=== PATIENT | female | born 1940 | race Caucasian/White ===

== ENCOUNTER 2018-02-19 15:46 | Outpatient (CLI) | payer MEDICARE ==
--- NOTE | 2018-02-19 17:37 | MRI ---
MRI THORACIC SPINE WITHOUT CONTRAST: Technique: Multiplanar, multisequence MRI images were obtained of the thoracic spine. Indications: Fall one month ago, back pain. FINDINGS: There is compression deformity involving the T9 vertebra with anterior wedge compression. There is di ffuse edema within this vertebra. Loss of anterior height is estimated at 70%. No significant retropu lsion. There is also a compression deformity involving the T11 vertebra with loss of anterior height estimat ed at 70%. No significant edema is seen within this vertebra, indicating that this is probably a more stable compression fracture. The other thoracic vertebrae maintain height. No other vertebral body edema identified. At the T10-11 disc, there is a mild diffuse disc bulge and there is minimal retropulsion of the poste rior superior corner of T11 associated with this T11 compression. These changes mildly flatten the th ecal sac. The anterior subarachnoid space is preserved at this level and there is no impingement on t he cord. No significant disc bulge or disc protrusion seen in the thoracic spine. The thoracic cord signal vianca ears normal. There is a superior endplate deformity involving the T7 vertebra consistent with a Schmorl node. Mild degenerative changes noted with anterior osteophytes from the thoracic vertebra. IMPRESSION: 1. Evidence of acute or subacute compression deformity involving the T9 vertebra with edema present a s described above. 2. Evidence of more stable compression deformity involving the T11 vertebra as described above. POS: [facility]
== END 2018-02-19 15:47 | disposition home or self-care (01) ==
LOC: SCSMRI 15:46
PROVIDERS: ATTEND Anesthesiology Pain Medicine
DX: S22.000A Wedge compression fracture of unspecified thoracic vertebra, initial encounter for closed fracture (principal); M43.8X4 Other specified deforming dorsopathies, thoracic region
CPT/HCPCS: 72146

== ENCOUNTER 2019-05-05 20:50 | Emergency (ER) | payer MEDICARE ==
[2019-05-05] MEDS ORDERED: Lidocaine 1% w/Epinephrine 1:100K 20 ML VIAL ONE (21:28)
[2019-05-05 21:46] LABS: #Basophils 0.1 thou/uL (0.0-0.2); #Eosinphils 0.1 thou/uL (0.0-0.7); #Lymphocytes 2.4 thou/uL (1.20-3.40); #Monocytes 0.6 thou/uL (0.11-0.59); #Neutrophils 6.8 thou/uL (1.40-6.50); %Basophils 1.1 % (0.0-1.0); %Eosinophils 1.2 % (0.0-10.0); %Lymphocytes 24.1 % (21.0-51.0); %Neutrophils 67.6 % (42.0-75.0); Hemoglobin 13.3 g/dL (12.0-16.0); Mean Corpuscular HGB CONC 34.1 g/dL (32.0-36.0); Mean Corpuscular Hemoglobin 32.8 pg (27.0-31.0); Mean Corpuscular Volume 96.2 fL (78.0-98.0); Mean Platelet Volume 6.9 fL (7.4-10.4); Platelet Count 175 thou/uL (130-400); RBC Distribution Width 11.7 % (11.5-14.5); Red Blood Cell (RBC) Count 4.07 mill/uL (4.20-5.40); White Blood Cell (WBC) Count 10.1 thou/uL (4.8-10.8)
[2019-05-05 22:04] LABS: ALT (SGPT) 14 U/L (8-55); AST (SGOT) 15 U/L (5-34); Albumin 3.9 g/dL (3.4-4.8); Alkaline Phosphatase 82 U/L (40-150); Anion Gap 13 mmol/L (10-20); BUN (Urea Nitrogen) 15 mg/dL (9.8-20.1); Bilirubin, Total 0.5 mg/dL (0.2-1.2); Calc. Creatinine Clearance 0 mL/min (70-130); Calcium 8.4 mg/dL (7.8-10.44); Carbon Dioxide 24 mmol/L (23-31); Chloride 100 mmol/L (98-107); Estimated GFR-MDRD 44; Globulin 2.4 g/dL (2.4-3.5); Glucose 119 mg/dL (83-110); Potassium 3.2 mmol/L (3.5-5.1); Protein, Total 6.3 g/dL (6.0-8.3); Sodium 134 mmol/L (136-145)
[2019-05-05] MEDS ORDERED: Adacel (T-DAP) 0.5 ML SYRINGE ONE (23:03)
[2019-05-05] MEDS ORDERED: Bacitracin Zinc 1 Packet ONE (23:15)
== END 2019-05-05 23:17 | disposition home or self-care (01) ==
LOC: ERS 20:50
DX: S61.213A Laceration without foreign body of left middle finger without damage to nail, initial encounter (principal); S61.215A Laceration without foreign body of left ring finger without damage to nail, initial encounter; R55 Syncope and collapse; J44.9 Chronic obstructive pulmonary disease, unspecified; I10 Essential (primary) hypertension; M25.561 Pain in right knee; F17.210 Nicotine dependence, cigarettes, uncomplicated; Z79.899 Other long term (current) drug therapy; Z23 Encounter for immunization; W18.30XA Fall on same level, unspecified, initial encounter
CPT/HCPCS: 12001; 36415; 80053; 84484; 85025; 90471; 90715; 93005; J2001

== ENCOUNTER 2021-02-11 21:48 | Inpatient (IN) | payer MEDICARE ==
[2021-02-11] MEDS ORDERED: Magnesium 2 GM/50 ML BAG (IN WATER) ONE (22:29)
[2021-02-11] MEDS ORDERED: Albuterol Sulfate 2.5 mg/3 ml Neb ONE (22:41)
[2021-02-11 22:48] LABS: Actual Bicarbonate (HCO3v) 29 mEq/L (22-28); Analyzer IN Cardio ER; Base Excess 3.5 mEq/L (-2.0 to +3.0); Calcium, Ionized (venous) 1.06 mmol/L (1.16-1.32); Chloride (VBG) 94 mmol/L (98-106); Hemoglobin (Hb) 16.2 g/dL (11.7-16.1); pH (venous) 7.42 (7.32-7.43)
[2021-02-11 22:50] LABS: #Basophils 0.1 thou/uL (0.0-0.2); #Eosinphils 0.4 thou/uL (0.0-0.7); #Lymphocytes 1.2 thou/uL (1.20-3.40); #Monocytes 0.3 thou/uL (0.11-0.59); #Neutrophils 9.9 thou/uL (1.40-6.50); %Basophils 0.4 % (0.0-1.0); %Eosinophils 3.2 % (0.0-10.0); %Monocytes 2.3 % (0.0-10.0); %Neutrophils 84.1 % (42.0-75.0); Hemoglobin 15.3 g/dL (12.0-16.0); Mean Corpuscular HGB CONC 34.5 g/dL (32.0-36.0); Mean Corpuscular Hemoglobin 32.8 pg (27.0-31.0); Mean Corpuscular Volume 95.1 fL (78.0-98.0); Mean Platelet Volume 7.1 fL (7.4-10.4); Platelet Count 218 thou/uL (130-400); RBC Distribution Width 11.1 % (11.5-14.5); Red Blood Cell (RBC) Count 4.68 mill/uL (4.20-5.40); White Blood Cell (WBC) Count 11.8 thou/uL (4.8-10.8)
[2021-02-11 23:11] LABS: ALT (SGPT) 13 U/L (8-55); AST (SGOT) 20 U/L (5-34); Albumin 4.2 g/dL (3.4-4.8); Alkaline Phosphatase 67 U/L (40-110); Anion Gap 15 mmol/L (10-20); BUN (Urea Nitrogen) 15 mg/dL (9.8-20.1); Calc. Creatinine Clearance 0 mL/min (70-130); Calcium 9.3 mg/dL (7.8-10.44); Carbon Dioxide 28 mmol/L (23-31); Chloride 94 mmol/L (98-107); Globulin 2.9 g/dL (2.4-3.5); Glucose 129 mg/dL (83-110); Potassium 3.6 mmol/L (3.5-5.1); Protein, Total 7.1 g/dL (5.8-8.1); Sodium 133 mmol/L (136-145)
[2021-02-11 23:33] LABS: CKMB 2.8 ng/mL (0-6.6)
[2021-02-11] MEDS ORDERED: Aspirin 325 MG TAB ONE (23:37)
[2021-02-12 00:03] LABS: SARS-CoV-2 NAA Rapid Test Not Detected (NotDetected)
[2021-02-12] MEDS ORDERED: Enoxaparin Sodium 80 MG/0.8 ML SYRINGE ONE ×2 (01:25→08:43)
[2021-02-12] MEDS ORDERED: methylPREDNISolone Sod Succ 40 MG VIAL ONE (02:29)
[2021-02-12 02:43] LABS: Troponin I 0.188 ng/mL (< 0.028)
[2021-02-12 02:58] VITALS: BMI 27.0
[2021-02-12] MEDS ORDERED: Acetaminophen 325 MG TAB PO PRN (04:41)
[2021-02-12] MEDS ORDERED: Ondansetron PF 4 MG/2 ML Vial IVP PRN (04:41)
[2021-02-12] MEDS ORDERED: Ondansetron ODT 4 MG TAB PO PRN (04:41)
[2021-02-12 05:04] LABS: Troponin I 0.176 ng/mL (< 0.028)
[2021-02-12] MEDS ORDERED: Azithromycin 500 MG VIAL ONE (05:44)
[2021-02-12] MEDS: methylPREDNISolone Sod Succ 40 MG VIAL IVP SCH (07:00)
[2021-02-12] MEDS: Enoxaparin Sodium 80 MG/0.8 ML SYRINGE SC SCH ×2 (08:46→20:29)
[2021-02-12] MEDS: Azithromycin 500 MG in Sodium Chloride 0.9% 250 ML 250 ML IVPB SCH (08:47)
[2021-02-12] MEDS ORDERED: Enoxaparin Sodium 40 MG/0.4 ML SYRINGE SC SCH ×2 (09:00)
[2021-02-12] MEDS ORDERED: FLU VACC QS2020-21(65YR UP)/PF 240 MCG/0.7 ML SYRINGE IM ONE (13:15)
[2021-02-12] MEDS ORDERED: Aspirin 81 mg Enteric Coated Tablet PO SCH (13:45)
[2021-02-12] MEDS ORDERED: methylPREDNISolone Sod Succ 40 MG VIAL IVP SCH (18:00)
[2021-02-12] MEDS: cefTRIAXone\\ROCEPHIN 1 GM in Sodium Chloride 0.9% 100 ML IVPB SCH (20:29)
[2021-02-13 04:35] LABS: #Lymphocytes 1.4 thou/uL (1.20-3.40); #Monocytes 0.4 thou/uL (0.11-0.59); #Neutrophils 10.6 thou/uL (1.40-6.50); %Basophils 0.1 % (0.0-1.0); %Eosinophils 0.1 % (0.0-10.0); %Lymphocytes 11.2 % (21.0-51.0); %Monocytes 3.3 % (0.0-10.0); %Neutrophils 85.3 % (42.0-75.0); Mean Corpuscular HGB CONC 32.4 g/dL (32.0-36.0); Mean Corpuscular Hemoglobin 31.1 pg (27.0-31.0); Mean Corpuscular Volume 95.9 fL (78.0-98.0); Mean Platelet Volume 7.2 fL (7.4-10.4); Platelet Count 221 thou/uL (130-400); White Blood Cell (WBC) Count 12.5 thou/uL (4.8-10.8)
[2021-02-13 04:51] LABS: Anion Gap 13 mmol/L (10-20); BUN (Urea Nitrogen) 23 mg/dL (9.8-20.1); Calc. Creatinine Clearance 41 mL/min (70-130); Calcium 8.7 mg/dL (7.8-10.44); Carbon Dioxide 31 mmol/L (23-31); Cardiac Risk 3.8 (Less than 4.5); Chloride 93 mmol/L (98-107); Cholesterol 230 mg/dl (< 200 Desired); Glucose 145 mg/dL (83-110); HDL Cholesterol 61 mg/dL (>60 Neg Risk); LDL Cholesterol, Calculated 142 mg/dL; Potassium 3.6 mmol/L (3.5-5.1); Sodium 133 mmol/L (136-145); Triglycerides 135 mg/dL (Less than 150)
[2021-02-13] MEDS: Enoxaparin Sodium 80 MG/0.8 ML SYRINGE SC SCH (09:14)
[2021-02-13] MEDS: Losartan 25 MG TAB PO SCH (09:14)
[2021-02-13] MEDS: methylPREDNISolone Sod Succ 40 MG VIAL IVP SCH (09:16)
[2021-02-13] MEDS: Aspirin 81 mg Enteric Coated Tablet PO SCH (09:16)
[2021-02-13] MEDS ORDERED: Nitroglycerin 0.4 MG TAB (25 Tab Bottle) SL PRN (09:35)
[2021-02-13] MEDS: Azithromycin 500 MG in Sodium Chloride 0.9% 250 ML 250 ML IVPB SCH (10:54)
[2021-02-13] MEDS ORDERED: Potassium Chloride 20 MEQ TAB PO SCH (12:00)
[2021-02-13] MEDS: cefTRIAXone\\ROCEPHIN 1 GM in Sodium Chloride 0.9% 100 ML IVPB SCH (20:59)
[2021-02-13] MEDS: Rosuvastatin 20 MG TAB PO SCH (21:03)
[2021-02-14 06:29] LABS: #Lymphocytes 1.7 thou/uL (1.20-3.40); #Monocytes 0.6 thou/uL (0.11-0.59); #Neutrophils 7.2 thou/uL (1.40-6.50); %Basophils 0.2 % (0.0-1.0); %Lymphocytes 17.9 % (21.0-51.0); %Monocytes 6.3 % (0.0-10.0); %Neutrophils 75.6 % (42.0-75.0); Hemoglobin 13.1 g/dL (12.0-16.0); Mean Corpuscular HGB CONC 34.2 g/dL (32.0-36.0); Mean Corpuscular Hemoglobin 32.9 pg (27.0-31.0); Mean Corpuscular Volume 96.2 fL (78.0-98.0); Mean Platelet Volume 7.1 fL (7.4-10.4); Platelet Count 180 thou/uL (130-400); Red Blood Cell (RBC) Count 3.97 mill/uL (4.20-5.40); White Blood Cell (WBC) Count 9.6 thou/uL (4.8-10.8)
[2021-02-14 06:48] LABS: Anion Gap 10 mmol/L (10-20); BUN (Urea Nitrogen) 27 mg/dL (9.8-20.1); Calc. Creatinine Clearance 48 mL/min (70-130); Calcium 8.4 mg/dL (7.8-10.44); Carbon Dioxide 33 mmol/L (23-31); Chloride 96 mmol/L (98-107); Glucose 99 mg/dL (83-110); Potassium 3.7 mmol/L (3.5-5.1); Sodium 135 mmol/L (136-145)
[2021-02-14] MEDS: Aspirin 81 mg Enteric Coated Tablet PO SCH (07:54)
[2021-02-14] MEDS: Losartan 25 MG TAB PO SCH (07:54)
[2021-02-14] MEDS: methylPREDNISolone Sod Succ 40 MG VIAL IVP SCH ×3 (07:56→21:25)
[2021-02-14] MEDS: Azithromycin 500 MG in Sodium Chloride 0.9% 250 ML 250 ML IVPB SCH (08:34)
[2021-02-14] MEDS ORDERED: Enoxaparin Sodium 40 MG/0.4 ML SYRINGE SC SCH (09:00)
[2021-02-14] MEDS: cefTRIAXone\\ROCEPHIN 1 GM in Sodium Chloride 0.9% 100 ML IVPB SCH (21:10)
[2021-02-14] MEDS: Rosuvastatin 20 MG TAB PO SCH (21:25)
[2021-02-15 05:57] LABS: #Lymphocytes 0.6 thou/uL (1.20-3.40); #Monocytes 0.2 thou/uL (0.11-0.59); #Neutrophils 6.3 thou/uL (1.40-6.50); %Eosinophils 0.1 % (0.0-10.0); %Lymphocytes 7.7 % (21.0-51.0); %Monocytes 3.1 % (0.0-10.0); %Neutrophils 89.1 % (42.0-75.0); Hemoglobin 13.3 g/dL (12.0-16.0); Mean Corpuscular Hemoglobin 31.7 pg (27.0-31.0); Mean Platelet Volume 7.4 fL (7.4-10.4); Platelet Count 184 thou/uL (130-400); RBC Distribution Width 10.8 % (11.5-14.5); White Blood Cell (WBC) Count 7.1 thou/uL (4.8-10.8)
[2021-02-15 06:12] LABS: Anion Gap 12 mmol/L (10-20); BUN (Urea Nitrogen) 27 mg/dL (9.8-20.1); Calc. Creatinine Clearance 43 mL/min (70-130); Calcium 8.4 mg/dL (7.8-10.44); Carbon Dioxide 31 mmol/L (23-31); Chloride 96 mmol/L (98-107); Glucose 192 mg/dL (83-110); Potassium 3.8 mmol/L (3.5-5.1); Sodium 135 mmol/L (136-145)
[2021-02-15] MEDS: Aspirin 81 mg Enteric Coated Tablet PO SCH (08:21)
[2021-02-15] MEDS: predniSONE 20 MG TAB PO SCH ×2 (08:21→16:09)
[2021-02-15] MEDS: Losartan 25 MG TAB PO SCH (08:21)
[2021-02-15] MEDS ORDERED: Cefdinir 300 MG CAP PO SCH (09:00)
[2021-02-15 16:12] VITALS: BP 160/76; TEMP 97.8
== END 2021-02-15 16:46 | disposition home or self-care (01) | DRG 189 ==
LOC: ERS 21:48 → ERHOLD 02-12 01:28 → 2NO 02-12 11:55 → T4-B 02-13 18:46
PROVIDERS: ADMIT Student in an Organized Health Care Education/Training Program; ATTEND Internal Medicine
DX: J96.01 Acute respiratory failure with hypoxia (principal); I21.A1 Myocardial infarction type 2; J44.1 Chronic obstructive pulmonary disease with (acute) exacerbation; Z20.822 Contact with and (suspected) exposure to COVID-19; E87.1 Hypo-osmolality and hyponatremia; I12.9 Hypertensive chronic kidney disease with stage 1 through stage 4 chronic kidney disease, or unspecified chronic kidney disease; F17.210 Nicotine dependence, cigarettes, uncomplicated; E78.00 Pure hypercholesterolemia, unspecified; N18.30 Chronic kidney disease, stage 3 unspecified; E78.5 Hyperlipidemia, unspecified; Z98.51 Tubal ligation status; Z88.5 Allergy status to narcotic agent; Z88.8 Allergy status to other drugs, medicaments and biological substances; Z79.51 Long term (current) use of inhaled steroids; Z79.899 Other long term (current) drug therapy
CPT/HCPCS: 0240U; 36415; 71045; 80048; 80053; 80061; 82553; 82805; 83605; 83735; 83880; 84484; 85025; 85379; 87040; 93005; 94640; 96365; 96367; 96372; J0456; J0696; J1650; J1956; J2920; J3475; J3490; J7050; J7512; J7611; J7620

== ENCOUNTER 2021-04-12 22:33 | Observation (INO) | payer MEDICARE ==
[2021-04-12 23:05] LABS: #Basophils 0.1 thou/uL (0.0-0.2); #Eosinphils 0.4 thou/uL (0.0-0.7); #Lymphocytes 1.1 thou/uL (1.20-3.40); #Monocytes 0.4 thou/uL (0.11-0.59); #Neutrophils 11.6 thou/uL (1.40-6.50); %Basophils 0.4 % (0.0-1.0); %Eosinophils 2.8 % (0.0-10.0); %Lymphocytes 8.4 % (21.0-51.0); %Monocytes 2.8 % (0.0-10.0); %Neutrophils 85.7 % (42.0-75.0); Hemoglobin 13.7 g/dL (12.0-16.0); Mean Corpuscular Hemoglobin 33.5 pg (27.0-31.0); Mean Corpuscular Volume 98.4 fL (78.0-98.0); Mean Platelet Volume 7.1 fL (7.4-10.4); Platelet Count 172 thou/uL (130-400); RBC Distribution Width 13.1 % (11.5-14.5); White Blood Cell (WBC) Count 13.5 thou/uL (4.8-10.8)
[2021-04-12 23:29] LABS: ALT (SGPT) 12 U/L (8-55); AST (SGOT) 15 U/L (5-34); Albumin 4.2 g/dL (3.4-4.8); Alkaline Phosphatase 70 U/L (40-110); Anion Gap 13 mmol/L (10-20); BUN (Urea Nitrogen) 13 mg/dL (9.8-20.1); Bilirubin, Total 1.3 mg/dL (0.2-1.2); Calc. Creatinine Clearance 0 mL/min (70-130); Calcium 9.1 mg/dL (7.8-10.44); Carbon Dioxide 29 mmol/L (23-31); Chloride 98 mmol/L (98-107); Globulin 2.7 g/dL (2.4-3.5); Glucose 167 mg/dL (83-110); Potassium 4.2 mmol/L (3.5-5.1); Protein, Total 6.9 g/dL (5.8-8.1); Sodium 136 mmol/L (136-145)
[2021-04-13 00:09] LABS: CKMB 3.2 ng/mL (0-6.6)
[2021-04-13] MEDS ORDERED: Ondansetron PF 4 MG/2 ML Vial IVP PRN (02:46)
[2021-04-13] MEDS ORDERED: Azithromycin 500 MG in Sodium Chloride 0.9% 250 ML 250 ML IVPB SCH (03:00)
[2021-04-13] MEDS ORDERED: Bacteriostatic Water 30 ML VIAL FS PRN (03:00)
[2021-04-13 03:30] VITALS: BMI 27.1
[2021-04-13 04:16] LABS: #Lymphocytes 0.6 thou/uL (1.20-3.40); #Monocytes 0.1 thou/uL (0.11-0.59); %Lymphocytes 6.5 % (21.0-51.0); %Neutrophils 92.5 % (42.0-75.0); Hemoglobin 13.5 g/dL (12.0-16.0); Mean Corpuscular HGB CONC 32.9 g/dL (32.0-36.0); Mean Corpuscular Hemoglobin 32.9 pg (27.0-31.0); Mean Corpuscular Volume 99.7 fL (78.0-98.0); Mean Platelet Volume 7.2 fL (7.4-10.4); Platelet Count 170 thou/uL (130-400); RBC Distribution Width 13.1 % (11.5-14.5); White Blood Cell (WBC) Count 9.7 thou/uL (4.8-10.8)
[2021-04-13 04:34] LABS: Anion Gap 13 mmol/L (10-20); BUN (Urea Nitrogen) 14 mg/dL (9.8-20.1); Calc. Creatinine Clearance 48 mL/min (70-130); Calcium 9.3 mg/dL (7.8-10.44); Carbon Dioxide 26 mmol/L (23-31); Chloride 98 mmol/L (98-107); Glucose 193 mg/dL (83-110); Potassium 4.1 mmol/L (3.5-5.1); Sodium 133 mmol/L (136-145)
[2021-04-13 04:54] LABS: SARS-CoV-2 NAA Rapid Test Not Detected (NotDetected)
[2021-04-13] MEDS ORDERED: Mometasone 100 MCG/Formoterol 5 MCG 120 PUFF INHALER INH SCH (06:30)
[2021-04-13 08:06] VITALS: BP 150/64; TEMP 97
[2021-04-13] MEDS ORDERED: methylPREDNISolone Sod Succ 40 MG VIAL IVP SCH (09:00)
[2021-04-13] MEDS ORDERED: Enoxaparin Sodium 40 MG/0.4 ML SYRINGE SC SCH (09:00)
== END 2021-04-13 12:53 | disposition home or self-care (01) ==
LOC: ERS 22:33 → 2NO 04-13 01:24
PROVIDERS: ADMIT Student in an Organized Health Care Education/Training Program; ATTEND Internal Medicine
DX: J96.21 Acute and chronic respiratory failure with hypoxia (principal); J44.9 Chronic obstructive pulmonary disease, unspecified; I12.9 Hypertensive chronic kidney disease with stage 1 through stage 4 chronic kidney disease, or unspecified chronic kidney disease; N18.30 Chronic kidney disease, stage 3 unspecified; Z79.51 Long term (current) use of inhaled steroids; Z79.899 Other long term (current) drug therapy; Z87.891 Personal history of nicotine dependence; Z88.5 Allergy status to narcotic agent; Z88.6 Allergy status to analgesic agent; Z20.822 Contact with and (suspected) exposure to COVID-19
CPT/HCPCS: 71045; 80048; 80053; 82553; 83880; 84484; 85025 ×2; 93005; 94640 ×3; 96365; 96372; 99285; G0378 ×2; U0002; U0005; 36415; J0456; J1650; J2920; J7050; J7620

== ENCOUNTER 2024-07-27 13:34 | Emergency (ER) | payer MEDICARE ==
[2024-07-27 18:19] LABS: #Basophils 0.04 10x3/uL (0.0-0.2); #Eosinphils Less than 0.03 10x3/uL (0.0-0.7); %Basophils 0.3 % (0.0-1.0); %Lymphocytes 8.4 % (21.0-51.0); %Monocytes 3.7 % (0.0-10.0); %Neutrophils 85.3 % (42.0-75.0); Hematocrit 41.8 % (36.0-47.0); Hemoglobin 14.2 g/dL (12.0-16.0); Mean Corpuscular Volume 85.3 fL (78.0-98.0); Mean Platelet Volume 8.7 fL (7.4-10.4); Platelet Count 158 10x3/uL (130-400); RBC Distribution Width 12.4 % (11.5-14.5)
[2024-07-27 18:29] LABS: ALT (SGPT) 39 U/L (8-55); AST (SGOT) 17 U/L (5-34); Albumin 3.2 g/dL (3.4-4.8); Alkaline Phosphatase 58 U/L (40-110); Anion Gap 15 mmol/L (10-20); BUN (Urea Nitrogen) 38 mg/dL (9.8-20.1); Bilirubin, Total 1.3 mg/dL (0.2-1.2); Calc. Creatinine Clearance 0 mL/min (70-130); Calcium 8.8 mg/dL (7.8-10.44); Carbon Dioxide 29 mmol/L (23-31); Chloride 90 mmol/L (98-107); Estimated GFR 66; Globulin 2.8 g/dL (2.4-3.5); Glucose 112 mg/dL (83-110); Magnesium 1.9 mg/dL (1.6-2.6); Potassium 3.7 mmol/L (3.5-5.1); Sodium 130 mmol/L (136-145)
[2024-07-27 18:34] LABS: Troponin I 0.017 ng/mL (< 0.028)
[2024-07-27 18:41] LABS: Bilirubin Negative (Negative); Blood, Urine Negative (Negative); CAUTI Indications for Culture Pelvic or flank pain; Clarity Turbid (Clear); Glucose, Urine (Dipstick) Normal (Negative); Ketone, Urine Negative (Negative); Leukocyte Negative Leu/uL (Negative); Nitrite Negative (Negative); Protein, Urine (Dipstick) 30 mg/dL (Neg-Trace); RBC/HPF 0-3 HPF (0-3); Specific Gravity, Urine 1.017 (1.002-1.036); Urobilinogen Normal mg/dL (Less than 2); WBC/HPF 0-3 HPF (0-3)
[2024-07-27 18:42] LABS: Bacteria/HPF 1+ HPF (None Seen)
[2024-07-27 18:44] LABS: Urine Culture Reflex No No
[2024-07-27] MEDS ORDERED: Ketorolac Tromethamine 30 MG (1 mL) VIAL ONE (18:54)
== END 2024-07-27 19:40 | disposition home or self-care (01) ==
LOC: ERS 13:34
DX: M54.50 Low back pain, unspecified (principal); J44.9 Chronic obstructive pulmonary disease, unspecified; I10 Essential (primary) hypertension; E78.00 Pure hypercholesterolemia, unspecified; F17.210 Nicotine dependence, cigarettes, uncomplicated; W19.XXXA Unspecified fall, initial encounter; Z79.899 Other long term (current) drug therapy
CPT/HCPCS: 71045; 72100; 72128; 72131; 72192; 80053; 81001; 83735; 83880; 84484; 85025; 93005; J1885; 36415; 96372